=== PATIENT | male | born 1995 | race Caucasian/White ===

== ENCOUNTER 2024-02-26 14:22 | Outpatient (CLI) | payer BC, SELFPAY ==
--- NOTE | 2024-02-26 14:30 | MR_ITS ---
[address] [address] Phone:?[phone] Fax:?[phone] Referring Physician Information: Tami Brandt [address] [facility] [address] Phone:?[phone] Fax:?[phone] Patient:Lisa Christopher D.O.B:?1995 Sex:?Male Phone:?[phone] [facility] MRN:?[id number] Exam Date:?02/26/2024 EXAM: MRI of the RIGHT KNEE, without contrast CLINICAL HISTORY: Right knee pain. Evaluate for internal derangement. COMPARISONS: Plain radiographs 02/17/2024. TECHNICAL: MR sequences of the right knee: sagittals: PD, PDFS coronals: PD, STIR axials: PD, T2 FS CONTRAST: None SEDATION: None FINDINGS: Bones: No fracture, bone marrow contusion, or other suspicious bone marrow signal abnormality. Patellofemoral joint: Cartilage: Intact. Retinacula: The medial and lateral retinacula are intact. Fat pads: The infrapatellar, quadriceps, and prefemoral fat pads are unremarkable. Knee joint: Effusion: Trace right knee joint effusion. Popliteal cyst: None. Intra-articular bodies: None. Posteromedial corner: The semimembranosus and pes anserine tendons are intact. Medial compartment: Medial meniscus: Intact. Cartilage: Intact. Lateral compartment: Lateral meniscus: Intact. Cartilage: 1.0 x 1.0 cm area of grade II chondromalacia over the posterior and medial portion of the lateral tibial plateau. Ligaments: Anterior cruciate ligament: Intact. Posterior cruciate ligament: Intact. Medial collateral ligament: Intact. Posterior oblique ligament: Intact. Fibular collateral ligament: Intact. Posterolateral corner: The distal biceps femoris tendon, iliotibial band, popliteus tendon, popliteus muscle, popliteofibular ligament, and arcuate ligament are intact. Extensor mechanism: Patellar tendon: There is mild proximal patellar tendinopathy. Quadriceps tendon: Intact. There is a 2.7 x 1.0 x 1.3 cm ganglion originating from the femoral origin of the medial head of the gastrocnemius tendon. IMPRESSION: 1. Mild proximal patellar tendinopathy. 2. 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 3. Trace right knee joint effusion. 2.7 x 1.0 x 1.3 cm ganglion originating from the femoral origin of the medial head of the gastrocnemius tendon. 4. No osseous pathology, ligamentous injury, or meniscal pathology of the right knee. RCB Electronically signed on 02/27/2024 9:10:00 AM by Kenneth Bhagat M.D.
== END 2024-02-26 14:23 | disposition home or self-care (01) ==
LOC: MRI 14:24
PROVIDERS: Visit Provider Physician Assistant
DX: M25.561 Pain in right knee (principal); M94.261 Chondromalacia, right knee; M25.461 Effusion, right knee
CPT/HCPCS: 73721